=== PATIENT | male | born 1955 | race Caucasian/White ===

== ENCOUNTER 2019-08-03 10:09 | Emergency (ER) | payer MEDICARE, MEDICAID ==
[~2019-08-03] VITALS: Ht 170.2 cm; Wt 106.6 kg
--- NOTE | 2019-08-03 10:10 | NUR ---
PT BIB [facility] FOR SOB AFTER CLIMBING A FLIGHT OF STAIRS. PT CLAIMS THE EDEMA ON BLE "COMES AND GOES". AAOX4. AMBULATORY. NO DISTESS NOTED. BREATHING EVEN AND UNLABORED. CLEAR BREATH SOUNDS ON BOTH LUNGS. DENIES CHEST PAINS. DENIES PAIN WHEN BREATHING. WILL CONTINUE TO MONITOR.
[2019-08-03 11:04] LABS: BASOPHILS % (AUTO) 0.4 % (0.0-2.0); EOSINOPHILS % (AUTO) 0.6 % (0.0-6.0); HEMATOCRIT 51 % (39-51); HEMOGLOBIN 17.2 g/dL (13.5-17.5); LYMPHOCYTES # (AUTO) 1.3 /CMM (0.8-4.8); MEAN CORPUSCULAR HGB CONC 34 g/dl (31.0-36.0); MEAN CORPUSCULAR VOLUME 90 fL (80-96); MONOCYTES # (AUTO) 0.6 /CMM (0.1-1.30); MONOCYTES % (AUTO) 5.7 % (2.0-12.0); NEUTROPHILS % (AUTO) 81.3 % (43.0-81.0); PLATELET COUNT (AUTO) 245 /CMM (150-450)
[2019-08-03 11:13] LABS: CALCIUM, SERUM 9.4 mg/dL (8.5-10.1); CARBON DIOXIDE 28 mmol/L (21-32); CHLORIDE 104 mmol/L (98-107); GLUCOSE 106 mg/dL (74-106); POTASSIUM 3.5 mmol/L (3.5-5.1); SODIUM SERUM 140 mmol/L (136-145); UREA NITROGEN, BLOOD 14 mg/dL (7-18)
[2019-08-03] MEDS ORDERED: ALBUTEROL FS 2.5 MG/3 ML VIAL.NEB NEB ONE (11:30)
[2019-08-03 11:31] LABS: ALANINE AMINOTRANSFERASE 48 U/L (12-78); ALKALINE PHOSPHATASE 115 U/L (46-116); ASPARTATE AMINOTRANSFERASE 34 U/L (15-37); B-TYPE NATRIURETIC PEPTIDE 328 PG/ML (0-125); BILIRUBIN,DIRECT 0.1 mg/dL (0.0-0.2); BILIRUBIN,TOTAL 0.5 mg/dL (0.2-1.0)
[2019-08-03] MEDS ORDERED: ALBUTEROL FS 2.5 MG/3 ML VIAL.NEB ONE (11:34)
[2019-08-03 12:04] VITALS: BP 118/74
== END 2019-08-03 12:05 | disposition home or self-care (01) ==
LOC: ER 10:11
DX: J45.909 Unspecified asthma, uncomplicated (principal); I10 Essential (primary) hypertension; Z95.818 Presence of other cardiac implants and grafts; Z88.0 Allergy status to penicillin
CPT/HCPCS: 36415; 71045-TC; 80048-TC; 80076-TC; 83880; 84484-TC; 85025-TC; 85730-TC